=== PATIENT | female | born 1960 | race Caucasian/White ===

== ENCOUNTER → 2019-07-03 | Outpatient (CLI) | payer MEDICARE, MEDICAID ==
--- NOTE | 2019-07-03 14:44 | RADIOLOGY REPORT (SQ) ---
EXAM DESCRIPTION: VENOUS UNILATERAL LOWER COMPLETED DATE/TIME: 07/03/2019 2:35 pm REASON FOR STUDY: PAIN M79.604 PAIN IN RIGHT LEG COMPARISON: None. TECHNIQUE: Dynamic and static piper scale and color images acquired of the right leg venous system. S elected spectral images acquired with additional compression and augmentation maneuvers. The contrala teral common femoral vein and saphenofemoral junction were also imaged. Images stored on PACS. LIMITATIONS: None. FINDINGS: COMMON FEMORAL: Normal phasicity, compression and augmentation. No visualized echogenic ma terial on piper scale. No defects on color images. FEMORAL: Normal compression and augmentation. No visualized echogenic material on piper scale. No defe cts on color images. POPLITEAL: Normal compression, augmentation. No visualized echogenic material on piper scale. No defec ts on color images. CALF VESSELS: Normal compression, augmentation. No visualized echogenic material on piper scale. No de fects on color images. GSV and SSV: Normal compression, augmentation. No visualized echogenic material on piper scale. No def ects on color images. ANY DEEP VENOUS INSUFFICIENCY: Not evaluated. ANY EVIDENCE OF POPLITEAL CYST: Yes, 2.6 x 2 x 0.7 cm. OTHER: No other significant finding. CONTRALATERAL COMMON FEMORAL VEIN AND SAPHENOFEMORAL JUNCTION: Normal phasicity, compression and augmentation. No visualized echogenic material on piper scale. No de fects on color images. IMPRESSION: No DVT or SVT in the right leg. Small popliteal cyst. TECHNICAL DOCUMENTATION: JOB ID: [id number] [employer]- All Rights Reserved Reading location - IP/workstation name: [email or web address]
== END ==
LOC: SP 13:41
PROVIDERS: ATTEND Physician Assistant
DX: M71.21 Synovial cyst of popliteal space [Baker], right knee (principal); M79.604 Pain in right leg
CPT/HCPCS: 93971

== ENCOUNTER 2019-09-27 19:31 | Emergency (ER) | payer MEDICARE, MEDICAID ==
[2019-09-27] MEDS ORDERED: IPRATROPIUM/ALBUTEROL 0.5-2.5 MG/3 ML AMPUL NEB ONE (20:23)
[2019-09-27 21:03] LABS: A TYPE INFLUENZA AG NEGATIVE (NEGATIVE); B INFLUENZA AG NEGATIVE (NEGATIVE)
--- NOTE | 2019-09-27 21:13 | RADIOLOGY REPORT (SQ) ---
EXAM DESCRIPTION: XR CHEST 1 VIEW COMPLETED DATE/TME: 09/27/2019 20:21 CLINICAL HISTORY: 58 years, Female, SOB COMPARISON: None. NUMBER OF VIEWS: One TECHNIQUE: Single frontal view of the chest was obtained portably LIMITATIONS: None. FINDINGS: Status post median sternotomy. Cardiac and mediastinal contours are normal. Lungs are clear. No pleural effusion or pneumothorax. IMPRESSION: No acute disease. copyright 2010 [employer]- All Rights Reserved
[2019-09-27 21:36] LABS: ABSOLUTE BASOPHILS # (AUTO) 0.1 10^3/uL (0.0-0.2); ABSOLUTE EOSINOPHILS # (AUTO) 0.5 10^3/uL (0.0-0.6); ABSOLUTE LYMPHOCYTES (AUTO) 2.4 10^3/uL (0.5-4.7); ABSOLUTE MONOCYTES (AUTO) 0.7 10^3/uL (0.1-1.4); ABSOLUTE NEUT (AUTO) 4.7 10^3/uL (1.7-8.2); BASOPHILS % (AUTO) 0.7 % (0-2); EOSINOPHILS % (AUTO) 5.7 % (0-6); HEMATOCRIT 43.7 % (36.0-47.0); HEMOGLOBIN 14.9 g/dL (12.0-15.5); LYMPHOCYTES % (AUTO) 28.9 % (13-45); MEAN CORPUSCULAR HEMOGLOBIN 30.5 pg (27.0-33.4); MEAN CORPUSCULAR VOLUME 89 fl (80-97); MONOCYTES % (AUTO) 8.7 % (3-13); PLATELET COUNT 273 10^3/uL (150-450); RED BLOOD COUNT 4.88 10^6/uL (3.72-5.28); RED CELL DISTRIBUTION WIDTH 13.7 % (11.5-14.0); TOTAL CELLS COUNTED % (AUTO) 100 %; WHITE BLOOD COUNT 8.5 10^3/uL (4.0-10.5)
[2019-09-27 21:44] LABS: ALBUMIN 3.8 g/dL (3.5-5.0); ALKALINE PHOSPHATASE 129 U/L (38-126); ANION GAP 8 (5-19); ASPARTATE AMINO TRANSFERASE 16 U/L (14-36); BILIRUBIN,TOTAL 0.4 mg/dL (0.2-1.3); BLOOD UREA NITROGEN 13 mg/dL (7-20); CALCIUM 9.4 mg/dL (8.4-10.2); CARBON DIOXIDE 26 mmol/L (22-30); CHLORIDE 106 mmol/L (98-107); GLUCOSE 98 mg/dL (75-110); POTASSIUM 3.9 mmol/L (3.6-5.0); TOTAL PROTEIN 6.5 g/dL (6.3-8.2)
--- NOTE | 2019-09-27 21:50 | ER Document Report ---
Entered by ALIYAH GARCIA SCRIBE 09/27/[id number] Acting as scribe for:KIMBERLEY XIONG IV, MD ED General - General Chief Complaint: Shortness Of Breath Stated Complaint: SHORTNESS OF BREATH Time Seen by Provider: 09/27/19 20:42 Primary Care Provider: RESHMA CHOW PA-C [Primary Care Provider] - Follow up as needed Mode of Arrival: Ambulatory Information source: Patient Notes: This 58 year old female patient presents to the ED today with complaints of nonproductive cough, shortness of breath, and sore throat for the past x3.5 days. Patient also reports a headache and feeling lethargic since onset. Patient states that she has taken OTC medications without relief. Patient notes that she is a current every day smoker, but denies smoking since onset. Patient reports a history of sarcoidosis. Patient denies fever. TRAVEL OUTSIDE OF THE [place] IN LAST 30 DAYS: No - Related Data Allergies/Adverse Reactions: doxycycline Allergy (Verified 09/27/19 20:21) metformin Adverse Reaction (Verified 09/27/19 20:21) Past Medical History - General Information source: Patient - Social History Smoking Status: Current Every Day Smoker Cigarette use (# per day): Yes Chew tobacco use (# tins/day): No Smoking Education Provided: No Family History: Reviewed & Not Pertinent Patient has suicidal ideation: No Patient has homicidal ideation: No Pulmonary Medical History: Reports: Other - Hx Sarcoidosis Review of Systems - Review of Systems Constitutional: See HPI, Other - Lethargy. denies: Fever EENT: See HPI, Throat pain Cardiovascular: No symptoms reported Respiratory: See HPI, Cough, Short of breath. denies: Sputum Gastrointestinal: No symptoms reported Genitourinary: No symptoms reported Female Genitourinary: No symptoms reported Musculoskeletal: No symptoms reported Skin: No symptoms reported Hematologic/Lymphatic: No symptoms reported Neurological/Psychological: See HPI, Headaches -: Yes All other systems reviewed and negative Physical Exam - Vital signs Vitals: Temp Pulse Resp BP Pulse Ox 98.5 F 56 L 19 139/83 H 97 09/27/19 19:38 09/27/19 19:38 09/27/19 19:38 09/27/19 19:38 09/27/19 19:38 - General General appearance: Alert - HEENT Head: Normocephalic, Atraumatic Eyes: Normal Pupils: PERRL - Respiratory Respiratory status: No respiratory distress Chest status: Nontender Breath sounds: Nonproductive cough, Rhonchi, Wheezing - Expiratory Chest palpation: Normal - Cardiovascular Rhythm: Regular Heart sounds: Normal auscultation Murmur: No Friction rub: No Gallop: None auscultated - Abdominal Inspection: Obese Distension: No distension Bowel sounds: Normal Tenderness: Nontender - Abdomen soft Organomegaly: No organomegaly - Back Back: Normal, Nontender - Extremities General upper extremity: Normal inspection General lower extremity: Normal inspection - Neurological Neuro grossly intact: Yes - Psychological Associated symptoms: Normal affect, Normal mood - Skin Skin Temperature: Warm Skin Moisture: Dry Skin Color: Normal Course - Re-evaluation Re-evalutation: 09/27/19 22:55 Results of ED MSE discussed with patient. All questions were answered prior to discharge. Patient will be tested for COVID 19 prior to discharge. Patient was instructed to self quarantine for 14 days. Emergency signs and symptoms, reasons to return to the emergency department discussed with patient. - Vital Signs Vital signs: Temp Pulse Resp BP Pulse Ox 98.5 F 56 L 19 139/83 H 97 09/27/19 19:38 09/27/19 19:38 09/27/19 19:38 09/27/19 19:38 09/27/19 19:38 - Laboratory Result Diagrams: 09/27/19 19:56 09/27/19 19:56 Laboratory results interpreted by me: 09/27/19 19:56 Alkaline Phosphatase 129 H - EKG Interpretation by Me Additional EKG results interpreted by me: 09/27/19 22:57 EKG obtained on 09/27/2019 at 1946 hrs. was interpreted by this MD. Findings: Sinus rhythm heart rate 52, normal axis, P waves proceed QRS complexes, QRS complexes appear narrow, there are no obvious patterns of ST segment elevation or depression present to suggest acute myocardial ischemia or infarction. Impression sinus bradycardia with nonspecific ST segments. Discharge - Discharge Clinical Impression: Acute respiratory infection Condition: Good Disposition: HOME, SELF-CARE Instructions: Acetaminophen Additional Instructions: Return to the Emergency Department without delay if any worse. HOME CARE INSTRUCTIONS & INFORMATION: Thank you for choosing us for your medical needs. We hope you're satisfied with the care you received. After you leave, you must properly care for your problem and, at the same time, observe its progress. Any condition can change. Some illnesses can change rapidly over hours or days. If your condition worsens, return to the Emergency Department or see your physician promptly. ABOUT YOUR X-RAYS AND EKG'S: If you had an EKG or X-rays taken, they have been read by the Emergency Physician. The X-rays and EKG's will also be read by a Radiologist or [employer]per within 24 hours. If discrepancies are noted, you will be notified by telephone. Please be certain the ED has a correct telephone number & address where you can be reached. Also, realize that some fractures or abnormalities do not show up on initial X-rays. If your symptoms continue, see your physician. ABOUT YOUR LABORATORY TEST: If you had laboratory tests, the results have been reviewed by the Emergency Physician. Some test results (for example cultures) may not be available for several days. You will be contacted if any test result shows you need additional treatment. Please be certain the ED has a correct telephone number and address where you can be reached. ABOUT YOUR MEDICATIONS: You will receive instructions on how to take your medicine on the prescription label you receive. Additional information may be provided by the Pharmacy. If you have questions afterwards, call the ED for clarification or further instructions. Some prescribed medications may cause drowsiness. Do not perform tasks such as driving a car or operating machinery without consulting your Pharmacist. If you feel you need a refill of pain medication, your condition will need re-evaluation. Please do not call for a refill of any medication. ABOUT YOUR SIGNATURE: Signature of this document acknowledges to followin. Understanding that you received emergency treatment and that you may be released before al medical problems are known or treated. Please be certain the ED has a correct phone number & address where you can be reached. 2. Acknowledgement that you will arrange for follow-up care as recommended. 3. Authorization for the Emergency Physician to provide information to your follow-up Physician in order to maximize your care. AT ANY TIME, IF YOUR SYMPTOMS CHANGE SIGNIFICANTLY OR WORSEN OR YOU DEVELOP NEW SYMPTOMS, RETURN TO THE EMERGENCY DEPARTMENT IMMEDIATELY FOR RE-EVALUATION. OUR GOAL IS TO PROVIDE EXCELLENT MEDICAL CARE! WE HOPE THAT WE HAVE MET YOUR EXPECTATIONS DURING YOUR EMERGENCY DEPARTMENT VISIT AND THAT YOU FEEL YOU HAVE RECEIVED EXCELLENT CARE! Prescriptions: Benzonatate [Tessalon Perles 100 mg Capsule] 200 mg PO Q8HP PRN #40 capsule PRN Reason: Cough Prednisone [Deltasone 20 mg Tablet] 60 mg PO DAILY 4 Days #12 tablet Referrals: RESHMA CHOW PA-C [Primary Care Provider] - Follow up as needed I personally performed the services described in the documentation, reviewed and edited the documentation which was dictated to the scribe in my presence, and it accurately records my words and actions.
[2019-09-27 22:20] LABS: APPEARANCE,URINE SLIGHTLY-CLOUDY; BILIRUBIN,URINE NEGATIVE (NEGATIVE); COLOR,URINE YELLOW; GLUCOSE, URINE NEGATIVE (NEGATIVE); KETONES,URINE NEGATIVE (NEGATIVE); LEUKOCYTE ESTERASE,URINE NEGATIVE (NEGATIVE); NITRITE,URINE NEGATIVE (NEGATIVE); PROTEIN,URINE NEGATIVE (NEGATIVE); URINE SPECIFIC GRAVITY 1.015; UROBILINOGEN,URINE NEGATIVE mg/dL (<2.0)
[2019-09-27] MEDS ORDERED: ALBUTEROL SULFATE HFA (90 MCG/PUFF) 8 GM MDI (1 MDI/ER DISP) IH PRN (22:20)
[2019-09-27] MEDS ORDERED: BENZONATATE 100 MG CAPSULE PO ONE (22:22)
[2019-09-27] MEDS ORDERED: PREDNISONE 20 MG TABLET PO ONE (22:22)
[2019-09-27 23:21] VITALS: BP 147/70
--- NOTE | 2019-09-28 11:21 | EKG REPORT ---
SEVERITY:- ABNORMAL ECG - SINUS RHYTHM ABNORMAL T, CONSIDER ISCHEMIA, ANT-LAT LEADS : Confirmed by: Jaren De La Vega MD 28-Sep-2019 11:20:51
== END 2019-09-27 23:40 | disposition home or self-care (01) ==
LOC: ER 19:31
DX: J22 Unspecified acute lower respiratory infection (principal); R05 Cough; R06.02 Shortness of breath; J02.9 Acute pharyngitis, unspecified; R51 Headache; R53.83 Other fatigue; R00.1 Bradycardia, unspecified; F17.210 Nicotine dependence, cigarettes, uncomplicated; Z88.1 Allergy status to other antibiotic agents; Z20.828 Contact with and (suspected) exposure to other viral communicable diseases
CPT/HCPCS: 93005; 94640; 99284; 36415; 87070; 87880; 85025; 87635; 80053; 81001; 87804; 83880; 71045; 93010; A9270 ×4; J3490; J7512; J7620

== ENCOUNTER 2019-10-04 22:33 | Emergency (ER) | payer MEDICARE, MEDICAID ==
[2019-10-04] MEDS ORDERED: NORMAL SALINE 500 ML IV ONE (23:14)
[2019-10-04] MEDS ORDERED: METHYLPREDNISOLONE INJ 125 MG/2 ML SDV IV ONE (23:14)
[2019-10-04] MEDS ORDERED: ALBUTEROL SULFATE HFA (90 MCG/PUFF) 8 GM MDI (1 MDI/ER DISP) IH ONE (23:14)
--- NOTE | 2019-10-04 23:17 | ER Document Report ---
ED General - General Chief Complaint: Shortness Of Breath Stated Complaint: SHORTNESS OF BREATH,CONGESTION Time Seen by Provider: 10/04/19 23:01 Primary Care Provider: RESHMA CHOW PA-C [Primary Care Provider] - Follow up as needed Notes: Patient is a 58-year-old female that comes emergency department for chief compla int of cough, intermittent tightness in her chest, weakness, chills. She states she has felt poorly for 10 days. She has been tested for the coronavirus here and was seen here several days ago but this is still pending. She denies pain otherwise, vomiting, headache. She was prescribed prednisone and states she took all this, she was provided with an inhaler but states she is not taking it. She denies COPD or asthma but she continues to smoke. She has a history of hypertension, hyperlipidemia, CABG years ago, sarcoidosis. She states that she was told when the health department called her that if she felt worse with increased shortness of breath or tightness in her chest she should come back for evaluation and this evening she did so she came. TRAVEL OUTSIDE OF THE [place] IN LAST 30 DAYS: No - Related Data Allergies/Adverse Reactions: doxycycline Allergy (Verified 09/27/19 20:21) metformin Adverse Reaction (Verified 09/27/19 20:21) Past Medical History - General Information source: Patient - Social History Smoking Status: Current Every Day Smoker Smoking Education Provided: Yes - <3 min Frequency of alcohol use: None Lives with: Family Family History: Reviewed & Not Pertinent Patient has suicidal ideation: No Patient has homicidal ideation: No - Immunizations Immunizations up to date: Yes Hx Diphtheria, Pertussis, Tetanus Vaccination: Yes Review of Systems - Review of Systems Constitutional: See HPI EENT: See HPI Cardiovascular: See HPI Respiratory: See HPI Gastrointestinal: No symptoms reported Genitourinary: No symptoms reported Female Genitourinary: No symptoms reported Musculoskeletal: No symptoms reported Skin: No symptoms reported Hematologic/Lymphatic: No symptoms reported Neurological/Psychological: No symptoms reported Physical Exam - Vital signs Vitals: Resp Pulse Ox 21 H 97 10/04/19 22:33 10/04/19 22:33 - Notes Notes: GENERAL: Alert, interacts well. No acute distress. HEAD: Normocephalic, atraumatic. EYES: Pupils equal, round, and reactive to light. Extraocular movements intact. ENT: Oral mucosa moist, tongue midline. Oropharynx unremarkable. Airway patent. Nares patent, sinuses non-tender, ear canals unremarkable, TM's intact. NECK: Full range of motion. Supple. Trachea midline. No lymphadenopathy. LUNGS: Slightly decreased lung sounds bilaterally, expiratory wheezes bilaterally more noticeable on the left. Some pain with palpation over the chest, some pain with deep breaths especially on the left. HEART: Regular rate and rhythm. No murmur ABDOMEN: Soft, non-tender. Non-distended. EXTREMITIES: Moves all 4 extremities spontaneously. No edema, normal radial and dorsalis pedis pulses bilaterally. No cyanosis. BACK: no cervical, thoracic, lumbar midline tenderness. No saddle anesthesia, normal distal neurovascular exam. Moves all extremities in full range of motion. NEUROLOGICAL: Alert and oriented x3. Normal speech. Cranial nerves II through XII grossly intact. Strength 5/5 in all extremities. PSYCH: Normal affect, normal mood. Talkative SKIN: Warm, dry, normal turgor. No rashes or lesions noted. Course - Re-evaluation Re-evalutation: Patient does have intermittent congested cough, she does have expiratory wheezes on exam, however she has no tachypnea, hypoxia, tachycardia, or fever. She is very talkative, speaks in full sentences without difficulty, she is quite well- appearing. Unremarkable physical exam otherwise. CBC shows borderline leukocytosis, chemistry shows borderline hyperglycemia, patient has recently been on steroids. No acidosis, unremarkable otherwise. Troponin negative, chest x-ray with no acute findings, EKG unchanged. Cycled troponin still negative. Patient does have some pleuritic pain, this is worse on the left, occasionally sharp, also has pain with cough. She was given a dose of [place] here with good effect. On reevaluation patient continues to be well-appearing. She is much improved after the albuterol treatments. Patient occasionally has borderline hypoxia when she lies flat or goes to sleep, but the lowest oxygen saturation obtained was 92%. She is able to engage and ambulate without difficulty. I discussed all her details at length. Discussed token cessation, use of albuterol, provided with spacer, she states the Tessalon is not working for cough at night and she was given medication for this along with precautions, she was given dexamethasone for her pleuritic pain and continued cough and occasional wheeze. Discussed expectations that this could last a while, patient will be contacted about the coronavirus and she states she will remain in isolation for the remaining period of time she was told on the last visit. Patient states appreciation and agreement with plan, stable and well-appearing at time of discharge. - Vital Signs Vital signs: Temp Pulse Resp BP Pulse Ox 11 L 146/72 H 94 10/05/19 02:01 10/05/19 02:01 10/05/19 02:01 - Laboratory Result Diagrams: 10/04/19 22:35 10/04/19 22:35 Laboratory results interpreted by me: 10/04/19 10/04/19 22:35 22:35 WBC 12.7 H Chloride 108 H Glucose 151 H AST 13 L - EKG Interpretation by Me Additional EKG results interpreted by me: EKG shows sinus rhythm at a rate of 59, QTC of 424, normal axis. Inverted T wave in lead V2 and flattened in V3/V4, no ischemic T waves or ST segment changes in consecutive leads. No change noted from prior EKG less than 1 week ago. Discharge - Discharge Clinical Impression: Cough, Wheezing Chest pain Qualifiers: Chest pain type: unspecified Qualified Code(s): R07.9 - Chest pain, unspecified Condition: Stable Disposition: HOME, SELF-CARE Additional Instructions: Your evaluation is consistent with a viral upper respiratory infection (bron chitis), wheezing, and what appears to be pleurisy. This inflammation on the lining of your lungs should resolve with time, you have been treated for this tonight to help symptoms resolve faster. Use the albuterol inhaler and the nebulizer, take Tylenol and/or ibuprofen for pain, drink plenty of fluids, use your Tessalon during the day for cough, use the syrup at night for cough. Symptoms should gradually resolve. Follow-up with primary care. Stop smoking. Return if you worsen including spiking fevers, difficulty breathing, or any other concerning symptoms. Prescriptions: Hydrocodone Bit/Homatropine [Hycodan Syrup 5-1.5 mg/5 ml Ud Cup] 5 ml PO Q4HP PRN #120 ml PRN Reason: Forms: Smoking Cessation Education Referrals: RESHMA CHOW PA-C [Primary Care Provider] - Follow up as needed
[2019-10-04 23:22] LABS: ABSOLUTE BASOPHILS # (AUTO) 0.1 10^3/uL (0.0-0.2); ABSOLUTE EOSINOPHILS # (AUTO) 0.3 10^3/uL (0.0-0.6); ABSOLUTE LYMPHOCYTES (AUTO) 4.3 10^3/uL (0.5-4.7); ABSOLUTE MONOCYTES (AUTO) 0.7 10^3/uL (0.1-1.4); ABSOLUTE NEUT (AUTO) 7.4 10^3/uL (1.7-8.2); BASOPHILS % (AUTO) 0.5 % (0-2); EOSINOPHILS % (AUTO) 2.4 % (0-6); HEMATOCRIT 41.2 % (36.0-47.0); HEMOGLOBIN 14.2 g/dL (12.0-15.5); LYMPHOCYTES % (AUTO) 33.5 % (13-45); MEAN CORPUSCULAR HGB CONC 34.6 g/dL (32.0-36.0); MEAN CORPUSCULAR VOLUME 90 fl (80-97); MONOCYTES % (AUTO) 5.5 % (3-13); PLATELET COUNT 298 10^3/uL (150-450); RED BLOOD COUNT 4.59 10^6/uL (3.72-5.28); SEGMENTED NEUTROPHILS % (AUTO) 58.1 % (42-78); TOTAL CELLS COUNTED % (AUTO) 100 %; WHITE BLOOD COUNT 12.7 10^3/uL (4.0-10.5)
[2019-10-04 23:33] LABS: ALBUMIN 3.7 g/dL (3.5-5.0); ALKALINE PHOSPHATASE 100 U/L (38-126); ANION GAP 5 (5-19); ASPARTATE AMINO TRANSFERASE 13 U/L (14-36); BILIRUBIN,DIRECT 0.2 mg/dL (0.0-0.4); BILIRUBIN,TOTAL 0.2 mg/dL (0.2-1.3); BLOOD UREA NITROGEN 16 mg/dL (7-20); CALCIUM 9.2 mg/dL (8.4-10.2); CARBON DIOXIDE 27 mmol/L (22-30); CHLORIDE 108 mmol/L (98-107); GLUCOSE 151 mg/dL (75-110); TOTAL PROTEIN 6.7 g/dL (6.3-8.2)
[2019-10-05] MEDS ORDERED: ALBUTEROL SULFATE HFA (90 MCG/PUFF) 8 GM MDI IH ONE (00:14)
--- NOTE | 2019-10-05 00:48 | RADIOLOGY REPORT (SQ) ---
EXAM DESCRIPTION: X-RAY CHEST 1 VIEW CLINICAL HISTORY: 58 years Female shortness of breath, chest tight COMPARISON: None TECHNIQUE: Portable upright chest at 2359 hours on 10/04/2019. FINDINGS: EKG leads overlie the chest. The lungs are well expanded and clear. The costophrenic angles are sharp. The heart is normal in size with normal pulmonary vascularity. Midline sternotomy wires and changes of cardiac surgery. No acute bony abnormalities are seen. IMPRESSION: No active cardiopulmonary lesions. Changes of cardiac surgery.
[2019-10-05] MEDS ORDERED: HYDROCODONE/ACETAMINOPHEN 5-325 MG TABLET PO ONE (01:32)
[2019-10-05] MEDS ORDERED: DEXAMETHASONE SOD PHOS INJ 10 MG/1 ML VIAL IV ONE (02:48)
[2019-10-05 04:36] VITALS: BP 128/94
--- NOTE | 2019-10-07 10:48 | EKG REPORT ---
SEVERITY:- ABNORMAL ECG - SINUS RHYTHM NONSPECIFICT T WAVE CHANGES : Confirmed by: Marco Carolina 07-Oct-2019 10:47:41
== END 2019-10-05 04:15 | disposition home or self-care (01) ==
LOC: ER 22:33
DX: R05 Cough (principal); R06.2 Wheezing; R07.89 Other chest pain; R07.81 Pleurodynia; R53.1 Weakness; R68.83 Chills (without fever); J44.9 Chronic obstructive pulmonary disease, unspecified; I10 Essential (primary) hypertension; F17.200 Nicotine dependence, unspecified, uncomplicated; Z88.1 Allergy status to other antibiotic agents
CPT/HCPCS: 93005; 99283; 96361; 96374; 96375; 36415; 85025; 80053; 84484; 71045; 93010; J2930; J7040; J1100; A9270 ×2; J3490

== ENCOUNTER → 2019-10-10 | Outpatient (CLI) | payer MEDICARE, MEDICAID | LOC: OD 12:27 | PROVIDERS: ATTEND Physician Assistant | DX: Z20.6 Contact with and (suspected) exposure to human immunodeficiency virus [HIV] (principal); Z72.52 High risk homosexual behavior | CPT/HCPCS: 36415; 86701 ==

== ENCOUNTER 2019-11-08 18:25 | Emergency (ER) | payer MEDICARE, MEDICAID ==
--- NOTE | 2019-11-08 18:56 | ER Document Report ---
ED Medical Screen (RME) - General Chief Complaint: Suicidal Ideation Stated Complaint: PSYCH EVAL Time Seen by Provider: 11/08/19 18:50 Primary Care Provider: RESHMA CHOW PA-C [Primary Care Provider] - Follow up as needed TRAVEL OUTSIDE OF THE [place] IN LAST 30 DAYS: No - HPI Notes: 11/08/19 18:55 58-year-old female presents via EMS to the emergency room for suicidal ideation. States if she "could have went through with killing myself, I would not be here right now". Patient is a daily smoker. Denies any self harm lacerations or cuttings. Patient is waiting to be seen into room and did not want to talk in length about why she came to the emergency room for her suicidal ideation. Denies any chest pain shortness of breath nausea vomiting diarrhea, rashes, fevers chills. IVC protocol has been initiated. I have greeted and performed a rapid initial assessment of this patient. A comprehensive ED assessment and evaluation of the patient, analysis of test results and completion of the medical decision making process will be conducted by additional ED providers. PHYSICAL EXAMINATION: GENERAL: Well-appearing, well-nourished and in no acute distress. HEAD: Atraumatic, normocephalic. EYES: Pupils equal round extraocular movements intact, conjunctiva are normal. NECK: Normal range of motion NEUROLOGICAL: Normal speech, - Related Data Allergies/Adverse Reactions: doxycycline Allergy (Verified 09/27/19 20:21) metformin Adverse Reaction (Verified 09/27/19 20:21) Home Medications: gabapentin. paroxetine. triamterene. ranitidine. baclofen. famotidine. lisinopril. metoprolol Past Medical History - Social History Frequency of alcohol use: None Drug Abuse: None - Immunizations Immunizations up to date: Yes Hx Diphtheria, Pertussis, Tetanus Vaccination: Yes Physical Exam - Vital signs Vitals: Temp 98.2 F 11/08/19 18:39 Course - Vital Signs Vital signs: Temp Pulse Resp BP Pulse Ox 98.2 F 77 16 97/77 L 99 11/08/19 18:46 11/08/19 18:46 11/08/19 18:46 11/08/19 18:46 11/08/19 18:46 Doctor's Discharge - Discharge Referrals: BUNDLE,RESHMA, PA-C [Primary Care Provider] - Follow up as needed
[2019-11-08 19:17] LABS: ABSOLUTE BASOPHILS # (AUTO) 0.2 10^3/uL (0.0-0.2); ABSOLUTE EOSINOPHILS # (AUTO) 0.3 10^3/uL (0.0-0.6); ABSOLUTE MONOCYTES (AUTO) 0.7 10^3/uL (0.1-1.4); ABSOLUTE NEUT (AUTO) 8.8 10^3/uL (1.7-8.2); BASOPHILS % (AUTO) 1.2 % (0-2); EOSINOPHILS % (AUTO) 2.7 % (0-6); HEMATOCRIT 42.2 % (36.0-47.0); HEMOGLOBIN 14.6 g/dL (12.0-15.5); MEAN CORPUSCULAR HEMOGLOBIN 31.4 pg (27.0-33.4); MEAN CORPUSCULAR HGB CONC 34.7 g/dL (32.0-36.0); MEAN CORPUSCULAR VOLUME 91 fl (80-97); MONOCYTES % (AUTO) 5.1 % (3-13); PLATELET COUNT 289 10^3/uL (150-450); RED BLOOD COUNT 4.67 10^6/uL (3.72-5.28); RED CELL DISTRIBUTION WIDTH 13.9 % (11.5-14.0); TOTAL CELLS COUNTED % (AUTO) 100 %
[2019-11-08 19:32] LABS: APPEARANCE,URINE CLOUDY; BILIRUBIN,URINE NEGATIVE (NEGATIVE); COLOR,URINE YELLOW; GLUCOSE, URINE NEGATIVE (NEGATIVE); KETONES,URINE NEGATIVE (NEGATIVE); LEUKOCYTE ESTERASE,URINE NEGATIVE (NEGATIVE); NITRITE,URINE NEGATIVE (NEGATIVE); PROTEIN,URINE NEGATIVE (NEGATIVE); URINE SPECIFIC GRAVITY 1.026; UROBILINOGEN,URINE NEGATIVE mg/dL (<2.0)
[2019-11-08 19:37] LABS: ACETAMINOPHEN < 10 ug/mL (10-30); ALBUMIN 4.1 g/dL (3.5-5.0); ALCOHOL < 10 mg/dL (NONE DETECTED); ALKALINE PHOSPHATASE 127 U/L (38-126); ANION GAP 9 (5-19); ASPARTATE AMINO TRANSFERASE 14 U/L (14-36); BILIRUBIN,TOTAL 0.4 mg/dL (0.2-1.3); BLOOD UREA NITROGEN 19 mg/dL (7-20); CALCIUM 9.3 mg/dL (8.4-10.2); CARBON DIOXIDE 22 mmol/L (22-30); CHLORIDE 107 mmol/L (98-107); GLUCOSE 119 mg/dL (75-110); POTASSIUM 4.1 mmol/L (3.6-5.0); SALICYLATE < 1.0 mg/dL (2.0-20.0); TOTAL PROTEIN 6.9 g/dL (6.3-8.2)
[2019-11-08 19:46] LABS: URINE AMPHETAMINES SCREEN NEGATIVE; URINE BARBITURATES SCREEN NEGATIVE; URINE BENZODIAZEPINES SCREEN NEGATIVE; URINE COCAINE SCREEN NEGATIVE; URINE MARIJUANA (THC) SCREEN NEGATIVE; URINE METHADONE SCREEN NEGATIVE; URINE PHENCYCLIDINE SCREEN NEGATIVE
--- NOTE | 2019-11-08 20:33 | ER Document Report ---
Entered by ALIYAH GARCIA SCRIBE 11/08/192023 Acting as scribe for:MAGDY SALDANA DO ED Psych Disorder / Suicide - General Chief Complaint: Suicidal Ideation Stated Complaint: PSYCH EVAL Time Seen by Provider: 11/08/19 18:50 Primary Care Provider: RESHMA CHOW PA-C [Primary Care Provider] - Follow up as needed Mode of Arrival: Medic Information source: Patient Notes: This 58 year old female patient brought in by EMS presents to the ED today with complaints of suicidal ideation. Patient states that she has been feeling anxious/depressed for over a year now and verbalizes a wish to . She states that if she "could have went through with killing myself, I would not be here right now" per OBSTETRICAL TECH in triage. Denies chest pain, shortness of breath, nausea/vomiting/diarrhea, skin rashes, fever, or chills. Patient is a poor historian, so PMHx is limited. TRAVEL OUTSIDE OF THE [place] IN LAST 30 DAYS: No - Related Data Allergies/Adverse Reactions: doxycycline Allergy (Verified 09/27/19 20:21) metformin Adverse Reaction (Verified 09/27/19 20:21) Home Medications: gabapentin. paroxetine. triamterene. ranitidine. baclofen. famotidine. lisinopril. metoprolol Past Medical History - General Information source: Patient, [facility] Records - Social History Smoking Status: Current Every Day Smoker Cigarette use (# per day): Yes Chew tobacco use (# tins/day): No Smoking Education Provided: No Frequency of alcohol use: None Drug Abuse: None Family History: Reviewed & Not Pertinent Patient has suicidal ideation: Yes Patient has homicidal ideation: No - Immunizations Immunizations up to date: Yes Hx Diphtheria, Pertussis, Tetanus Vaccination: Yes Review of Systems - Review of Systems Constitutional: See HPI. denies: Chills, Fever EENT: No symptoms reported Cardiovascular: See HPI. denies: Chest pain Respiratory: See HPI. denies: Short of breath Gastrointestinal: See HPI. denies: Diarrhea, Nausea, Vomiting Genitourinary: No symptoms reported Female Genitourinary: No symptoms reported Musculoskeletal: No symptoms reported Skin: No symptoms reported Hematologic/Lymphatic: No symptoms reported Neurological/Psychological: See HPI, Depression, Anxiety, Suicidal ideation -: Yes All other systems reviewed and negative Physical Exam - Vital signs Vitals: Temp 98.2 F 11/08/19 18:39 - General General appearance: Alert In distress: None - HEENT Head: Normocephalic, Atraumatic Eyes: Normal Pupils: PERRL - Respiratory Respiratory status: No respiratory distress Chest status: Nontender Breath sounds: Normal Chest palpation: Normal - Cardiovascular Rhythm: Regular Heart sounds: Normal auscultation Murmur: No Friction rub: No Gallop: None auscultated - Abdominal Inspection: Normal Distension: No distension Bowel sounds: Normal Tenderness: Nontender - Abdomen soft Organomegaly: No organomegaly - Back Back: Normal, Nontender - Extremities General upper extremity: Normal inspection General lower extremity: Normal inspection - Neurological Neuro grossly intact: Yes Orientation: AAOx4 [place] Coma Scale Eye Opening: Spontaneous Shayla Coma Scale Verbal: Oriented Shayla Coma Scale Motor: Obeys Commands [place] Coma Scale Total: 15 - Psychological Associated symptoms: Angry, Flat affect - Skin Skin Temperature: Warm Skin Moisture: Dry Skin Color: Normal Course - Re-evaluation Re-evalutation: 11/08/19 22:16 MDM 58 year old female with impaired hearing, major depression, chronic back pain, sarcoidosis, htn and tobacco abuse is here with complaints of thoughts of suicide. She presented to [facility] mental [facility] today and has been having these thoughts for about a year and they are getting worse. She has financial difficulty and this is a great stress to her. 11/08/19 22:19 - Vital Signs Vital signs: Temp Pulse Resp BP Pulse Ox 98.2 F 77 16 97/77 L 99 11/08/19 18:46 11/08/19 18:46 11/08/19 18:46 11/08/19 18:46 11/08/19 18:46 - Laboratory Result Diagrams: 11/08/19 19:05 11/08/19 19:05 Laboratory results interpreted by me: 11/08/19 11/08/19 11/08/19 18:39 19:05 19:05 WBC 13.0 H Absolute Neuts (auto) 8.8 H Glucose 119 H Alkaline Phosphatase 127 H Urine Blood SMALL H Salicylates < 1.0 L Acetaminophen < 10 L - EKG Interpretation by Me EKG shows normal: Sinus rhythm - NSR Nl [place] [address] elevation or depression. My interpretation. Rate: Normal Rhythm: NSR Critical Care Note - Critical Care Note Total time excluding time spent on procedures (mins): 30 Discharge - Discharge Clinical Impression: Depression Qualifiers: Depression Type: major depressive disorder Major depression recurrence: unspecified whether recurrent Active/Remission status: currently active Major depression episode severity: severe Psychotic features: without psychotic features Qualified Code(s): F32.2 - Major depressive disorder, single episode, severe without psychotic features Condition: Fair Disposition: PSYCH HOSP/UNIT Referrals: RESHMA CHOW PA-C [Primary Care Provider] - Follow up as needed I personally performed the services described in the documentation, reviewed and edited the documentation which was dictated to the scribe in my presence, and it accurately records my words and actions.
[2019-11-08] MEDS ORDERED: LORAZEPAM 1 MG TABLET PO ONE (21:44)
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
--- NOTE | 2019-11-09 07:36 | EKG REPORT ---
SEVERITY:- ABNORMAL ECG - SINUS RHYTHM NONSPECIFIC T ABNORMALITIES, ANT-LAT LEADS, NO CHANGE FROM 10/04/19). : Confirmed by: Jaren De La Vega MD 09-Nov-2019 07:35:50
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
[2019-11-09] MEDS ORDERED: LORAZEPAM 1 MG TABLET PO ONE (17:03)
[2019-11-09] MEDS ORDERED: HYDROXYZINE PAMOATE 50 MG CAPSULE PO PRN (17:11)
[2019-11-09] MEDS: OLANZAPINE 5 MG TABLET PO SCH (18:22)
[2019-11-09] MEDS: GABAPENTIN 300 MG CAPSULE PO SCH (18:22)
[2019-11-09] MEDS: DIVALPROEX SODIUM 250 MG TAB.SR.24H PO SCH (18:25)
[2019-11-09] MEDS ORDERED: NICOTINE 21 MG/24 HR PATCH.TD24 TD PRN (18:27)
--- NOTE | 2019-11-10 09:19 | ER Document Report ---
Doctor's Note Notes: 11/10/19 09:18 PHYSICAL EXAMINATION: GENERAL: Appears well, healthy, well-nourished, no acute distress. LUNGS: Equal breath sounds bilaterally and clear to auscultation. No wheezes rales or rhonchi. CARDIOVASCULAR: S1-S2, regular rate, regular rhythm. Radial pulses 2+, normal. ABDOMEN: Normoactive bowel sounds. Soft, nontender, no guarding, no rebound tenderness, and no masses palpated. PSYCH: Normal mood, normal affect. Patient states that she wants to go home. Plan is for her to go to [facility], as she is noncompliant with her medications and mental health would like her to go to a facility so she can get back on her normal medications. Will enforcement will be at bedside momentarily. Patient is stable for transport to [facility].
[2019-11-10] MEDS: DIVALPROEX SODIUM 250 MG TAB.SR.24H PO SCH (09:39)
[2019-11-10] MEDS: OLANZAPINE 5 MG TABLET PO SCH (09:39)
[2019-11-10] MEDS: GABAPENTIN 300 MG CAPSULE PO SCH (09:39)
[2019-11-10 10:04] VITALS: BP 140/86
== END 2019-11-10 10:06 ==
LOC: ER 18:25
DX: F32.2 Major depressive disorder, single episode, severe without psychotic features (principal); R45.851 Suicidal ideations; F41.9 Anxiety disorder, unspecified; F17.210 Nicotine dependence, cigarettes, uncomplicated; G89.29 Other chronic pain; M54.9 Dorsalgia, unspecified; D86.9 Sarcoidosis, unspecified; I10 Essential (primary) hypertension; Z59.9 Problem related to housing and economic circumstances, unspecified; Z79.899 Other long term (current) drug therapy; Z88.1 Allergy status to other antibiotic agents
CPT/HCPCS: 93005; 99285; 36415; 80307 ×4; 85025; 80053; 81001; 93010; A9270 ×10; J3490

== ENCOUNTER 2020-01-14 21:36 | Emergency (ER) | payer MEDICARE, MEDICAID ==
[2020-01-14] MEDS ORDERED: KETOROLAC TROMETHAMINE 60 MG/2 ML SDV IM ONE (23:20)
--- NOTE | 2020-01-14 23:20 | ER Document Report ---
ED Medical Screen (RME) - General Chief Complaint: Fall Injury Stated Complaint: FELL/TAILBONE PAIN Time Seen by Provider: 01/14/20 23:13 Primary Care Provider: RESHMA CHOW PA-C [Primary Care Provider] - Follow up as needed Mode of Arrival: Ambulatory Information source: Patient Notes: Patient is a 59-year-old female presents emergency department chief complaint of pain at the coccyx and bilateral ribs. Patient reports she was walking through her house when she tripped and fell falling straight backwards from a standing position landing on her coccyx. Patient reports pain in the ribs area bilaterally worse when she takes a deep breath. Patient appears disheveled, moderate distress, ambulating slowly. No neurological deficits noted. I have greeted and performed a rapid initial assessment of this patient. A comprehensive ED assessment and evaluation of the patient, analysis of test results and completion of the medical decision making process will be conducted by additional ED providers. I have specifically instructed the patient or family members with the patient to immediately return to any nursing staff should anything change in the patient's condition or with their chief complaint. TRAVEL OUTSIDE OF THE [place] IN LAST 30 DAYS: No - Related Data Allergies/Adverse Reactions: doxycycline Allergy (Verified 09/27/19 20:21) sertraline [From Zoloft] Allergy (Verified 01/14/20 23:16) metformin Adverse Reaction (Verified 09/27/19 20:21) Home Medications: Ativan Past Medical History - Social History Chew tobacco use (# tins/day): No Frequency of alcohol use: None Drug Abuse: None Psychiatric Medical History: Reports: Hx Depression - Immunizations Immunizations up to date: Yes Hx Diphtheria, Pertussis, Tetanus Vaccination: Yes Physical Exam - Vital signs Vitals: Temp Pulse Resp BP Pulse Ox 98.0 F 72 16 122/73 98 01/14/20 21:49 01/14/20 21:49 01/14/20 21:49 01/14/20 21:49 01/14/20 21:49 Course - Vital Signs Vital signs: Temp Pulse Resp BP Pulse Ox 98.0 F 72 16 122/73 98 01/14/20 23:13 01/14/20 21:49 01/14/20 21:49 01/14/20 21:49 01/14/20 21:49 Doctor's Discharge - Discharge Referrals: RESHMA CHOW PA-C [Primary Care Provider] - Follow up as needed
--- NOTE | 2020-01-15 00:27 | RADIOLOGY REPORT (SQ) ---
Sacrum and coccyx three view on 01/14/2020 at 11:44 PM CLINICAL INDICATION: Pain after fall COMPARISON: None FINDINGS: Degenerative changes are noted in the lower lumbar spine. Degenerative changes are partially imaged in the hips. The SI joints are well aligned. There are no fractures. No other bony abnormality is noted. IMPRESSION: Degenerative changes with no acute abnormality.
--- NOTE | 2020-01-15 00:29 | RADIOLOGY REPORT (SQ) ---
Chest and bilateral RIBS five view on 01/14/2020 at 11:53 PM CLINICAL INDICATION: Bilateral rib pain after fall COMPARISON: 10/04/2019 FINDINGS: The patient is status post median sternotomy and CABG. Postsurgical changes are partially imaged in the lower cervical spine. The lungs are clear. No pneumothorax or pleural effusion is noted. Cardiac, hilar and mediastinal contours are within normal limits. Pulmonary vascularity is within normal limits. No acute rib fracture is noted bilaterally. IMPRESSION: No active disease and no acute rib fracture.
[2020-01-15] MEDS ORDERED: HYDROCODONE/ACETAMINOPHEN 5-325 MG (6 TAB/ER DISP) PO PRN (00:54)
--- NOTE | 2020-01-15 00:58 | ER Document Report ---
Entered by MELANIE LAMBERT SCRIBE 01/15/20 0055 Acting as scribe for:MAGDY SALDANA DO ED Fall - General Chief Complaint: Fall Injury Stated Complaint: FELL/TAILBONE PAIN Time Seen by Provider: 01/14/20 23:13 Primary Care Provider: RESHMA CHOW PA-C [Primary Care Provider] - 01/16/20 Mode of Arrival: Ambulatory Information source: Patient Notes: This 59 year old female patient presents to the emergency department today with complaints of a fall that occurred just prior to arrival. Patient states that she tripped and fell when leaving the bathroom. Patient landed on her buttocks, on carpeted floor. Patient complains of left chest wall pain and buttocks pain. TRAVEL OUTSIDE OF THE [place] IN LAST 30 DAYS: No - Related data Allergies/Adverse Reactions: doxycycline Allergy (Verified 09/27/19 20:21) sertraline [From Zoloft] Allergy (Verified 01/14/20 23:16) metformin Adverse Reaction (Verified 09/27/19 20:21) Home Medications: Ativan Past Medical History - General Information source: Patient - Social History Smoking Status: Current Every Day Smoker Cigarette use (# per day): Yes Chew tobacco use (# tins/day): No Frequency of alcohol use: None Drug Abuse: None Lives with: Family Family History: Reviewed & Not Pertinent Psychiatric Medical History: Reports: Hx Depression Surgical Hx: Negative - Immunizations Immunizations up to date: Yes Hx Diphtheria, Pertussis, Tetanus Vaccination: Yes Review of Systems - Review of Systems Constitutional: No symptoms reported EENT: No symptoms reported Cardiovascular: No symptoms reported Respiratory: No symptoms reported Gastrointestinal: No symptoms reported Genitourinary: No symptoms reported Female Genitourinary: No symptoms reported Musculoskeletal: See HPI, Back pain Skin: No symptoms reported Hematologic/Lymphatic: No symptoms reported Neurological/Psychological: No symptoms reported -: Yes All other systems reviewed and negative Physical Exam - Vital signs Vitals: Temp Pulse Resp BP Pulse Ox 98.0 F 72 16 122/73 98 01/14/20 21:49 01/14/20 21:49 01/14/20 21:49 01/14/20 21:49 01/14/20 21:49 Interpretation: Normal - General General appearance: Appears well, Alert - HEENT Head: Normocephalic, Atraumatic Eyes: Normal Pupils: PERRL - Respiratory Respiratory status: No respiratory distress Chest status: Tender - left chest wall Breath sounds: Normal Chest palpation: Normal - Cardiovascular Rhythm: Regular Heart sounds: Normal auscultation Murmur: No - Abdominal Inspection: Obese Distension: No distension Bowel sounds: Normal Tenderness: Nontender Organomegaly: No organomegaly - Back Back: Tender - sacrum - Extremities General upper extremity: Normal inspection, Nontender, Normal color, Normal ROM, Normal temperature General lower extremity: Normal inspection, Nontender, Normal color, Normal ROM, Normal temperature, Normal weight bearing. No: Dany's sign - Neurological Neuro grossly intact: Yes Cognition: Normal Orientation: AAOx4 Shayla Coma Scale Eye Opening: Spontaneous Shayla Coma Scale Verbal: Oriented [place] Coma Scale Motor: Obeys Commands [place] Coma Scale Total: 15 Speech: Normal Motor strength normal: LUE, RUE, LLE, RLE Sensory: Normal - Psychological Associated symptoms: Normal affect, Normal mood - Skin Skin Temperature: Warm Skin Moisture: Dry Skin Color: Normal Course - Vital Signs Vital signs: Temp Pulse Resp BP Pulse Ox 98.0 F 72 16 122/73 98 01/14/20 23:13 01/14/20 21:49 01/14/20 21:49 01/14/20 21:49 01/14/20 21:49 Discharge - Discharge Clinical Impression: Contusion of sacrum Qualifiers: Encounter type: initial encounter Qualified Code(s): S30.0XXA - Contusion of lower back and pelvis, initial encounter Contusion of left chest wall Qualifiers: Encounter type: initial encounter Qualified Code(s): S20.212A - Contusion of left front wall of thorax, initial encounter Condition: Stable Disposition: HOME, SELF-CARE Instructions: Contusion ([facility]), Ice & Elevation ([facility]), Ice Massage ([facility]), Ice Packs ([facility]), Rib Contusion ([facility]) Additional Instructions: Rest, ice to side and back. Please return here for any problems or any concerns. Referrals: RESHMA CHOW PA-C [Primary Care Provider] - 01/16/20 I personally performed the services described in the documentation, reviewed and edited the documentation which was dictated to the scribe in my presence, and it accurately records my words and actions.
[2020-01-15 01:18] VITALS: BP 125/80
== END 2020-01-15 01:18 | disposition home or self-care (01) ==
LOC: ER 21:36
DX: S30.0XXA Contusion of lower back and pelvis, initial encounter (principal); S20.212A Contusion of left front wall of thorax, initial encounter; W01.0XXA Fall on same level from slipping, tripping and stumbling without subsequent striking against object, initial encounter; Y93.89 Activity, other specified; F17.210 Nicotine dependence, cigarettes, uncomplicated; Z79.899 Other long term (current) drug therapy; Z88.1 Allergy status to other antibiotic agents; Z88.8 Allergy status to other drugs, medicaments and biological substances
CPT/HCPCS: 99283; 96372; 72220; 71111; J1885; A9270